=== PATIENT | male | born 1945 | race Caucasian/White ===

== ENCOUNTER → 2016-12-03 | Outpatient (CLI) | payer MEDICARE, OTHER ==
--- NOTE | 2016-12-03 15:13 | CT ---
EXAM DESCRIPTION: Abdomen and pelvis CT. CLINICAL HISTORY: Left lower quadrant abdominal tenderness. COMPARISON: None. TECHNIQUE: A volumetric CT with no FL IV contrast was obtained during the portal venous veins. Images are displayed in multiplanar reconstructions. FINDINGS: GI: Diverticulosis of the colon noted. No evidence of diverticulitis on today's study to account for patient's pain. Liver: No suspicious lesion. Biliary: Patient is status post cholecystectomy. Spleen: Unremarkable. Pancreas: Unremarkable. Adrenal Glands: No significant nodularity. Kidneys: No suspicious enhancement. Pelvic organs: Unremarkable. Bones: No suspicious lesion/fracture. Lymph nodes: No enlarged lymph nodes. Lung bases: No significant consolidation or nodularity. IMPRESSION: Today's CT demonstrates atherosclerotic disease of a non aneurysmal abdominal aorta, spondylosis of the lumbar spine and diverticulosis of the colon. No evidence of acute diverticulitis or other inflammatory changes within the abdomen or pelvis to account for patient's left lower quadrant pain. Electronically signed by: Fuad Nunes MD 12/03/2016 15:11
== END ==
LOC: RAD 12:11
PROVIDERS: ATTEND Family Medicine
DX: R10.814 Left lower quadrant abdominal tenderness (principal); K57.30 Diverticulosis of large intestine without perforation or abscess without bleeding; I70.0 Atherosclerosis of aorta; M47.896 Other spondylosis, lumbar region

== ENCOUNTER → 2017-02-27 | Outpatient (CLI) | payer MEDICARE, OTHER ==
--- NOTE | 2017-02-27 18:24 | MRI ---
EXAM DESCRIPTION: Brain w/oContrast CLINICAL HISTORY: 71 years,Male,[place] COMPARISON: None TECHNIQUE: MRI performed multiple sequences of the brain without contrast. FINDINGS: There is no abnormal extra-axial fluid collection. No mass effect. Ivan-white matter differentiation demonstrates mild increased T2 signal changes in the periventricular white matter. And multiple small T2 white matter changes seen in the santiago radiata bilaterally. Sulcation and ventricles demonstrates mild age-appropriate atrophy No mass effect. Diffusion demonstrates no acute findings. The included paranasal sinuses are unremarkable. The mastoid air cells are unremarkable. IMPRESSION: Unremarkable MRI of the brain. Electronically signed by: Angelo Madden MD 02/27/2017 6:23 PM CDT
== END ==
LOC: MRI 08:02
PROVIDERS: ATTEND Family Medicine
DX: R55 Syncope and collapse (principal)

== ENCOUNTER → 2017-03-12 | Day surgery (SDC) | payer MEDICARE, OTHER ==
[~2017-03-12] MED LIST: LIDOCAINE 1% 10 ML VIAL INJ ONE; PROPOFOL 200 MG/20 ML VIAL IV ONE; fentaNYL CITRATE INJ 50 MCG/ML AMP ONE
--- NOTE | 2017-03-12 09:46 | OP ---
DATE OF PROCEDURE: 03/12/17 PREPROCEDURE DIAGNOSIS: 1. History of colonic polyp. 2. Colon surveillance. POSTPROCEDURE DIAGNOSIS: 1. Diverticulosis of the sigmoid and descending colon. 2. No evidence of recurrent polyp. PROCEDURE: 1. Colonoscopy to the cecum. SURGEON: Skyler Suarez MD. ANESTHESIA: Monitored anesthesia care. FINDINGS: With the patient under adequate sedation, digital exam showed normal anal canal, normal sized prostate, no rectal masses and no clinically significant hemorrhoids identified. Colon preparation was excellent. Significant spasm in the sigmoid and descending colon with accompanying diverticulosis. There was no evidence of diverticulitis or diverticular stricture. The ascending colon was normal. The splenic flexure, transverse colon unremarkable. The ascending colon and cecum were reached. The ileocecal valve was visualized. Appendix opening was well seen. There were no lesions seen in the entire colon. The colon was examined to good advantage. Careful withdrawal of the scope and reexamination of the colon showed no new additional findings. Total scope withdrawal time was 6 minutes. FINAL IMPRESSION: 1. Diverticulosis of the sigmoid and descending colon with spasm. 2. No evidence of any colonic polyp. RECOMMENDATION: Followup colonoscopy in 5 to 10 years. #[id number] cc: Cholo Juarez MD MTDD
== END ==
LOC: AMB 07:04
PROVIDERS: ATTEND Internal Medicine Gastroenterology
DX: Z12.11 Encounter for screening for malignant neoplasm of colon (principal); K57.30 Diverticulosis of large intestine without perforation or abscess without bleeding; K21.9 Gastro-esophageal reflux disease without esophagitis; I25.10 Atherosclerotic heart disease of native coronary artery without angina pectoris; I10 Essential (primary) hypertension; Z86.010 Personal history of colon polyps; Z79.899 Other long term (current) drug therapy
CPT/HCPCS: 00810; G0105; J3010; J3490; J7120

== ENCOUNTER → 2018-08-13 | Outpatient (CLI) | payer MEDICARE, OTHER ==
--- NOTE | 2018-08-14 08:27 | MRI ---
EXAM DESCRIPTION: Lumbar Spine w/wo Contrast CLINICAL HISTORY: RADICULOPATHY COMPARISON: Previous MRI lumbar spine without and with contrast August 12, 2016 TECHNIQUE: MRI of the lumbar spine is performed according to our usual protocol with axial and sagittal multi sequence imaging. FINDINGS: Sagittal T2 images reveal decreased signal intensity consistent with desiccation of the intervertebral discs at levels L1-2 through L5-S1. Posterior annular bulges are most prominent at these levels as well. Slight degenerative anterolisthesis of L4 on L5 is present but this disc is fused. Slight degenerative retrolisthesis of L5 on S1 is present measuring 5 mm. No prevertebral mass or aneurysm. Lower cord and conus appear normal. Tip of the conus is behind L1. Metal artifacts are related to adrienne and screw fixation and L4-5 level with fused intervertebral disc. Compared to previous study August 12, 2016, no change is seen on sagittal T2 images. Sagittal T1 images reveal benign marrow signal characteristics. Normal T1 signal intensity and appearance of the lower cord and conus. Sagittal STIR images show mild increased signal intensity around the degenerated discs. No paraspinous fluid collection. Cystic lesions are seen associated with the posterior elements consistent with small ganglion cysts. Postcontrast images show no abnormal enhancement of the osseous structures. No rim enhancement around a recurrent disc herniation. Axial T1 and T2-weighted images were obtained to evaluate the disc levels. T12-L1: Mild diffuse posterior annular bulge without focal herniation. No spinal stenosis or significant neural foraminal narrowing. Facets appear mildly hypertrophic. Normal appearance of the lower cord and conus. L1-2: Moderate posterior annular bulge without focal herniation. No significant spinal stenosis. There is severe bilateral neural foraminal narrowing similar to appearance on previous study. Facets hypertrophy is present with ligamentum flavum thickening right more than left. There is severe narrowing of subarticular recesses left more than right. L2-3: Moderate diffuse posterior annular bulge with superimposed right midline and paracentral protrusion extending inferiorly behind upper endplate of L3 measuring 5 mm in AP dimension. This appears similar to previous study. No high-grade spinal stenosis. There is severe bilateral neural foraminal narrowing which appears similar to previous study. Marked facet hypertrophic spurring is present with ligamentum flavum thickening right more than left. Somewhat fragmented appearance of the superior articular process of L3 suggests an old fracture. Previous study had the same appearance. Severe narrowing of right subarticular recess and lateral recess affecting the descending right L3 nerve root. L3-4: Severe diffuse posterior annular bulge is seen with spinal stenosis. AP diameter of the spinal canal is narrowed to approximately 8 mm and the mediolateral width is narrowed by ligamentum flavum thickening to approximately 4 mm. Compared to previous study, this same appearance was present. There is obliteration of the bilateral subarticular recesses and bilateral lateral recess compromise. Severe left and moderately severe right neural foraminal narrowing is present as on previous study. L4-5: No spinal stenosis at this fused disc level. There is uncovering of the posterior annulus by grade 1 anterolisthesis. Sagittal images show severe right neural foraminal narrowing with moderately severe left neural foraminal narrowing. Marked facet hypertrophic changes are seen with narrowing of the left subarticular recess affecting the descending left L5 nerve root. Compared to the previous study, these findings appear stable. Posterior defect is consistent with right laminectomy and partial facetectomy. L5-S1: Mild posterior annular bulge without spinal stenosis. Marked facet hypertrophic spurring is seen with ligamentum flavum thickening. There is severe bilateral subarticular recess narrowing. Neural foraminal narrowing is severe bilaterally. No changes at this level compared to previous study. Axial postcontrast images confirm the findings. No change compared to the previous study. Upper sacrum appears intact. Pedicle screws and interconnecting rods are present on the right. No retroperitoneal mass or aneurysm. IMPRESSION: Disc degeneration and facet hypertrophy with multilevel subarticular recess and neural foraminal compromise. High-grade spinal stenosis at L3-4. Previous L4-5 fusion with adrienne and screw fixation. No significant change since previous exam. Electronically signed by: Jhony Booker MD 08/14/2018 8:26 AM CDT
== END ==
LOC: LAB.O 13:33
PROVIDERS: ATTEND Physical Medicine & Rehabilitation
DX: M54.16 Radiculopathy, lumbar region (principal); M51.36 Other intervertebral disc degeneration, lumbar region; M48.061 Spinal stenosis, lumbar region without neurogenic claudication; M96.1 Postlaminectomy syndrome, not elsewhere classified; Z98.1 Arthrodesis status

== ENCOUNTER → 2018-09-22 | Outpatient (CLI) | payer OTHER | LOC: GMAE 10:35 | PROVIDERS: ATTEND Family Medicine | DX: R06.02 Shortness of breath (principal); R00.1 Bradycardia, unspecified ==

== ENCOUNTER → 2018-10-12 | Outpatient (CLI) | payer OTHER | LOC: GMAE 11:57 | PROVIDERS: ATTEND Family Medicine | DX: E53.8 Deficiency of other specified B group vitamins (principal) ==

== ENCOUNTER 2019-03-23 02:22 | Emergency (ER) | payer OTHER, MEDICARE ==
[2019-03-23] MEDS ORDERED: NITROGLYCERIN 0.4 MG 25 EA TAB SL ONE (02:52)
[2019-03-23] MEDS ORDERED: GLUCAGON INJ 1 MG VIAL IM ONE (02:52)
[2019-03-23 02:53] VITALS: TEMP 98
--- NOTE | 2019-03-23 02:58 | ED.PDOC ---
History of Present Illness - General Chief Complaint: ENT Problem Stated Complaint: feels like a pill is stuck in his throat Time Seen by Provider: 03/23/19 02:37 - History of Present Illness Initial Comments: 73 Y/O MALE C/O HARD TO SWALLOW. PT IS TAKING TX FOR PUD (POSS H PYLORY). TOOK PILL AROUND 2200 AND FELT LIKE IT GOT STUCK IN THE ESOPHAGUS/THROAT. DRANK WATER AND EVENTUALLY FELT LIKE IT WENT DOWN. AROUND 0100 WOKE UP WITH DRY MOUTH AND IT WAS HARD TO SWALLOW, STS ARE CONSTANT, MILD TO MODERATE. NOT BETTER. DENIES FEVER, COUGH, SOB, CP, ABD PAIN, N/V. HAS HAD SOME OCCASIONAL DIARRHEA WITH THE ANTIBIOTICS. Allergies/Adverse Reactions: Allergies NO KNOWN ALLERGY Allergy (Verified 03/23/19 02:52) Home Medications: Ambulatory Orders Pantoprazole Sodium 40 mg PO BID 03/12/17 Apixaban [Eliquis] 5 mg PO DAILY 03/23/19 Lansoprazole [Prevacid] 30 mg PO BID 03/23/19 Losartan Potassium & Hydrochlo [Hyzaar 50-12.5 mg] 1 tab PO DAILY 03/23/19 Metoprolol Tartrate [Lopressor] 25 mg PO DAILY 03/23/19 Sucralfate Tab [Carafate Tab] 1 gm PO QID 03/23/19 Review of Systems - Review of Systems Constitutional: Denies: chills, diaphoresis, fever EENTM: States: no symptoms reported Respiratory: States: cough. Denies: orthopnea, short of breath, stridor Cardiology: Denies: chest pain, edema, palpitations Gastrointestinal/Abdominal: Denies: abdominal pain, constipation, diarrhea, nausea Genitourinary: States: no symptoms reported Musculoskeletal: States: no symptoms reported Skin: States: no symptoms reported Neurological: States: no symptoms reported Endocrine: States: no symptoms reported Past Medical History (General) - Patient Medical History Hx Seizures: No Hx Stroke: No Hx Dementia: No Hx Asthma: No Hx of COPD: No Hx Cardiac Disorders: No Hx Congestive Heart Failure: No Hx Pacemaker: No Hx Hypertension: Yes Hx Thyroid Disease: No Hx Diabetes: No Hx Gastroesophageal Reflux: Yes Hx Renal Disease: No Hx Cancer: No Hx of HIV: No Hx Hepatitis C: No Hx MRSA: No Surgical History: other - Vaccination History Hx Tetanus, Diphtheria Vaccination: No Hx Influenza Vaccination: Yes Hx Pneumococcal Vaccination: No - Social History Hx Tobacco Use: No Hx Alcohol Use: No Hx Substance Use: No Hx Physical Abuse: No Hx Emotional Abuse: No Family Medical History - Family History Father Family History: Unknown Living Status: Brother Family History: Unknown Living Status: Age at (years of age): 93 Cause of : PR Sister Family History: Unknown Living Status: Cause of : PR Physical Exam - Physical Exam General Appearance: Alert, Anxious, Comfortable Eye Exam: bilateral normal - SERGIO, EOMI Ears, Nose, Throat: hearing grossly normal, normal ENT inspection, normal pharynx Neck: non-tender, full range of motion, supple, normal inspection Respiratory: chest non-tender, lungs clear, normal breath sounds, no respiratory distress, no accessory muscle use Cardiovascular/Chest: normal peripheral pulses, regular rate, rhythm, no edema, no gallop Gastrointestinal/Abdominal: normal bowel sounds, non tender, soft, no organomegaly, no pulsatile mass Back Exam: normal inspection, no CVA tenderness Extremity: normal range of motion, non-tender 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 NO RESPIRATORY DISTRESS, O2 SAT IN THE HIGH 90'S ON RA. GI SLIDER GIVEN, NO IMPROVEMENT. STILL FEELS LIKE SOMETHING IS STUCK IN HIS THROAT. PT HAS BEEN OBSERVED FOR ABOUT 2 HRS AND HAS HAD NO RESPIRATORY DISTRESS OR PROBLEMS. RECOMMENDED TRANSFER TO [facility] FOR ENT CONSULT, PT DECLINES, FEELS STABLE, WANTS TO GO HOME AND WILL CALL PCP OR ENT IN AM. DR MCKEON IS [facility] [employer] AND HIS PHONE NUMBER WAS GIVEN TO THE PATIENT. ADVISED TO CALL EARLY IN THE MORNING. AGAIN OFFERED TO TRANSFER HIM RIGHT NOW, BUT HE DECLINES. RT ER IF ANY PROBLEMS OR IF UNABLE TO F/U WITH ENT AND STS PERSIST. - EKG/XRAY/CT Xray Comments: XR: NAF Departure - Departure Clinical Impression: Dysphagia Qualifiers: Dysphagia type: unspecified Qualified Code(s): R13.10 - Dysphagia, unspecified ICD-10 Supporting Text: POSSIBLE FOREIGN BODY Disposition: Discharge to Home or Self Care Condition: Good Departure Forms: ED Discharge - Pt. Copy, Patient Portal Self Enrollment Instructions: DI for Ear Pain-Adult Diet: full liquid diet Referrals: ALEXX VARMA MD [Primary Care Provider] - 1-2 Weeks Home Medications: Ambulatory Orders Pantoprazole Sodium 40 mg PO BID 03/12/17 Apixaban [Eliquis] 5 mg PO DAILY 03/23/19 Lansoprazole [Prevacid] 30 mg PO BID 03/23/19 Losartan Potassium & Hydrochlo [Hyzaar 50-12.5 mg] 1 tab PO DAILY 03/23/19 Metoprolol Tartrate [Lopressor] 25 mg PO DAILY 03/23/19 Sucralfate Tab [Carafate Tab] 1 gm PO QID 03/23/19
--- NOTE | 2019-03-23 03:15 | RAD ---
EXAM: XR Soft Tissue Neck CLINICAL HISTORY: The patient is 73 years old and is Male; FEELS SOMETHING IS IN THE THROAT TECHNIQUE: Frontal and lateral views of the soft tissues of the neck. COMPARISON: No relevant prior studies available. FINDINGS: AIRWAY: Unremarkable. No abnormal narrowing. BONES/JOINTS: Postsurgical change from C5 through C7 with anterior cervical disc fusion is noted. SOFT TISSUES: Unremarkable. No abnormal soft tissue prominence. Normal epiglottis. IMPRESSION: No acute findings. Electronically signed by: Fátima Henao MD 03/23/2019 3:13 AM CDT
[2019-03-23] MEDS ORDERED: ALUM & MAG HYDROX-SIMETHICONE 30 ML, LIDOCAINE VISCOUS 2% 15 ML PO ONE ×2 (03:54)
[2019-03-23] MEDS ORDERED: LIDOCAINE HCL 2% (MOUTH-THROAT) 15 ML UD ONE (03:55)
[2019-03-23] MEDS ORDERED: ALUM & MAG HYDROX-SIMETHICONE 30 ML UD ONE (03:55)
[2019-03-23 04:41] VITALS: BP 103/72; O2SAT 98
== END 2019-03-23 04:41 | disposition home or self-care (01) ==
LOC: ER 02:22
DX: R13.10 Dysphagia, unspecified (principal); I10 Essential (primary) hypertension; K21.9 Gastro-esophageal reflux disease without esophagitis; Z79.899 Other long term (current) drug therapy; Z79.01 Long term (current) use of anticoagulants
CPT/HCPCS: 70360; J1610

== ENCOUNTER → 2019-09-20 | Outpatient (CLI) | payer OTHER ==
--- NOTE | 2019-09-20 15:41 | MRI ---
EXAM DESCRIPTION: Lumbar Spine w/o Contrast : Magnetic Resonance Imaging. CLINICAL HISTORY: RADICULOPATHY LUMBAR REGION COMPARISON: MRI lumbar spine without contrast 13 August 2018. TECHNIQUE: Multiplanar, multiple standard sequences, non contrast MRI, lumbar spine. FINDINGS: L5-S1: The disc is well visualized on axial T2 series 501, image 3. There flattening of the disc space. Anterior endplate reaction and disc remnant bulge. 4.5 mm grade 1 retrolisthesis is stable. Tiny posterior disc remnant bulge with endplate spurs. Hypertrophic facet arthrosis bilaterally with more ligament thickening on the left. Bilateral mild foraminal stenosis and bilateral L5 nerve compromise stable since the prior study. L4-L5 posterior fusion construct with right side only transpedicular screws, unilateral connecting adrienne, and interbody fusion device. The device is located on the right side of the disc space abutting the right endplate margins. 2.5 mm anterolisthesis is stable. Stable endplate changes related to the interbody fusion. Mild disc space loss to the left of midline. Disc osteophyte complex encroaching on the left foramen with moderate foraminal narrowing. Disc osteophyte complex and bony hypertrophy causing right foraminal stenosis slight progression since the prior study. Effacement of the right subarticular recess by granulation tissue. AP canal diameter 11 mm. L3-L4: Disc desiccation with minimal disc space loss anterior bulging. Posterior broad-based bulge 5 mm and migration above and below the disc space with bilateral subarticular recess stenosis. Marked bilateral facet joint arthrosis with joint space effusions and posterior ligament thickening. AP canal narrowed to a 3 mm channel, 5 mm craniocaudal. Narrowing has increased since the prior study. Moderate to severe left foraminal narrowing. Borderline right foraminal stenosis. Foraminal narrowing/stenosis stable. L2-L3: Moderately disc desiccation moderate to severe disc space loss anterior bulging and diffuse moderate endplate reaction midline into the left of midline. Diffuse disc bulge in the midline with AP canal diameter 11 mm. Disc bulge left of midline with disc osteophyte complex causing severe left foraminal stenosis stable since the prior study. Partial decompression and left laminectomy L2. Right side hypertrophic facet arthrosis and thickened ligament, contributing to moderate to severe right foraminal narrowing, L1-L2: Disc desiccation and minimal to moderate disc space loss. Anterior bulging and endplate reaction. Posterior disc bulge and moderate endplate reaction in the midline and to the left of midline with 3 mm grade 1 retrolisthesis. Anterior disc bulge effacing the bilateral subarticular recesses. Bilateral moderate hypertrophic facet arthrosis and ligament thickening with AP canal diameter 7.5 mm. Moderate foraminal narrowing bilaterally. No change since the prior study. T12-L1: Disc desiccation with minimal disc space loss and bulging. Mild bilateral hypertrophic facet arthrosis and ligament thickening impressing on the lateral junction of the thecal sac and conus. Mild bilateral foraminal narrowing with no canal stenosis. Conus terminates at this level. T12-L2 dextroscoliosis and L3-S1 levoscoliosis. Paravertebral soft tissues bilateral paravertebral muscle atrophy. There may be bilateral mild renal cortical atrophy.. Distal cord normal signal and caliber. Normal marrow signal in the remaining vertebral bodies and the posterior elements. Vertebral bodies are not compressed at any level. IMPRESSION: 1. Degenerative scoliosis with multiple levels of endplate spondylosis, disc desiccation and bulging, hypertrophic facet arthrosis and flavum ligament hypertrophy. 2. Posterior transpedicular fusion at L4 and L5 on the right with unilateral connecting rods. Customary position. No abnormal marrow signal, soft tissue edema, or fluid collection paravertebral or in the canal. Interbody fusion device on the right side of the disc space. 2.5 mm anterolisthesis and moderate canal narrowing. Stable since the prior study. Right foraminal stenosis has slightly progressed since the prior study. 3. Multifactorial bilateral mild foraminal stenosis at L5-S1 and bilateral L5 nerve root compromise stable since the prior study. 4. Multifactorial severe canal stenotic channel, 5 mm in length and L3-L4. Degree of stenosis is increased since the prior study. Borderline right foraminal stenosis and left foraminal narrowing is stable. 5. Left side disc osteophyte complex and hypertrophic bone resulting in severe foraminal stenosis at L2-3 stable since the prior study. Moderate to severe right side foraminal narrowing due to hypertrophic changes of the posterior elements. 6. Moderate canal stenosis at L1-L2 with effacement of the bilateral subarticular recesses and grade 1 anterolisthesis, stable since the prior study. Electronically signed by: Manjeet Covington MD 09/20/2019 3:40 PM [facility]
== END ==
LOC: MRI 10:46
PROVIDERS: ATTEND Family Medicine
DX: M41.9 Scoliosis, unspecified (principal); M47.25 Other spondylosis with radiculopathy, thoracolumbar region; M47.26 Other spondylosis with radiculopathy, lumbar region; M51.15 Intervertebral disc disorders with radiculopathy, thoracolumbar region; M51.16 Intervertebral disc disorders with radiculopathy, lumbar region; M43.16 Spondylolisthesis, lumbar region; M48.07 Spinal stenosis, lumbosacral region; M48.062 Spinal stenosis, lumbar region with neurogenic claudication; M25.78 Osteophyte, vertebrae; Z98.1 Arthrodesis status

== ENCOUNTER → 2019-09-21 | Outpatient (CLI) | payer OTHER ==
--- NOTE | 2019-09-21 16:12 | CT ---
EXAM DESCRIPTION: Lumbar Spine: Computed Tomography. CLINICAL HISTORY: 73 years Male RADICULOPATHY COMPARISON: Prior scan lumbar spine 20 September 2019 and 13 August 2018. TECHNIQUE: Spiral, axial 2.5 x 2.5 mm scans through the lumbarspine without contrast. Coronal and sagittal Reconstructions. Total Exam DLP: 419.76 mGy-cm. This exam was performed according to our departmental dose-optimization program which includes automated exposure control, adjustment of the mA and/or kV according to patient size and/or use of iterative reconstruction technique; to reduce radiation dose to as low as reasonably achievable (ALARA). FINDINGS: Posterior fusion construct on the right at L5 and L4 with normal bone density around the screws and the posterior unilateral connecting adrienne. No large soft tissue mass around the hardware. No radiodense metallic or bony fragments around the hardware. L5-S1: Marked loss of the disc space. Anterior disc remnant bulge with endplate spurs. Bilateral endplate reactive changes left more than right and also posterior. Bilateral facet arthrosis with deformity of the pars more right than left, no spondylolysis. Moderate canal narrowing. Bilateral hypertrophic facet arthrosis. Bilateral foraminal stenosis, left more than right. No bony compression deformity. L4-L5: Fusion as previously described. Interbody fusion device predominantly in the midline and right of midline. Endplate reactive changes also predominantly anterior and to the right of midline with minimal inferior subsidence of the implant. Right facet joint is mostly fused also partially fused on the left. Right foraminal stenosis and marked left foraminal narrowing. Grade 1 anterolisthesis. Moderate canal narrowing. No bony compression deformity. Bony narrowing or stenosis left subarticular recess L3-L4: disc bulge anteriorly with spurs. Posterior disc space decreased. Bilateral facet arthrosis and hypertrophy right more than left. Posterior disc bulge and hypertrophic soft tissue changes and posterior ligament thickening not well appreciated on the CT scan. Severe canal stenosis noted on the MRI scan. Bony foraminal narrowing right more than left. No bony compression deformity. L2-L3: Disc desiccation and disc space loss and desiccated disc gas formation in the disc space. Posterior disc space endplate reactive changes more to the posterior and right aspect. Bilateral hypertrophic facet arthrosis, with widening of the SI joint and gas formation in the right facet. Bilateral foraminal stenosis with canal narrowing. No compression type vertebral body with deformity. No prior partial left laminectomy at L2, as was suspected on the MRI scan. L1-L2: Disc desiccation and disc space loss with minimal desiccated gas in the disc space posterior and anterior endplate reactive changes with anterior disc bulging. Minimal posterior soft tissue bulge. Significant bony canal narrowing. Narrowing of the left subarticular recess. Bilateral bony foraminal narrowing and possible stenosis from nonvisualized soft tissues T12-L1: Disc space decreased with desiccated air formation in the disc. Posterior remnant bulging. Question of a synovial cyst or other soft tissue object, measuring 4.7 mm, projecting anteriorly from the left facet joint against the posterolateral left thecal sac on axial image 12/26. Bilateral significant foraminal narrowing. IMPRESSION: 1. Multilevel spondylosis, disc degeneration, hypertrophic endplate changes and hypertrophic facet arthrosis, resulting in multiple levels of canal narrowing or stenosis and foraminal narrowing or stenosis. Bony canal and foraminal stenosis visualized at several levels on this study. MRI study more sensitive for stenosis of canal and foramina caused by soft tissues. MRI also more sensitive for soft tissue subarticular recess narrowing or stenosis. 2. Finding of a soft tissue object possibly synovial cyst projecting from the left facet joint at T12-L1 into the posterior lateral left thecal sac and possibly abutting the descending left L1 nerve. Not well seen on the MRI scan. Electronically signed by: Manjeet Covington MD 09/21/2019 4:10 PM [facility]
== END ==
LOC: CT 09:53
PROVIDERS: ATTEND Family Medicine
DX: M47.26 Other spondylosis with radiculopathy, lumbar region (principal); M51.16 Intervertebral disc disorders with radiculopathy, lumbar region; M79.9 Soft tissue disorder, unspecified

== ENCOUNTER → 2019-12-30 | Outpatient (CLI) | payer OTHER | LOC: GMAE 10:54 | PROVIDERS: ATTEND Family Medicine | DX: Z12.5 Encounter for screening for malignant neoplasm of prostate (principal); I10 Essential (primary) hypertension | CPT/HCPCS: 84443; G0103 ==

== ENCOUNTER → 2020-03-21 | Outpatient (CLI) | payer OTHER ==
--- NOTE | 2020-03-22 11:18 | MRI ---
EXAM DESCRIPTION: Brain w/o Contrast: MRI. CLINICAL HISTORY: DIPLOPIA COMPARISON: MRI brain without contrast February 2017. TECHNIQUE: Multiplanar, high-field MRI unit, multiple diffusion sequences, multiple conventional sequences without contrast. FINDINGS: Bilateral multiple foci of hyperintense FLAIR and T2-weighted signal in the periventricular white matter and blackburn/sub-cortical white matter junctions of the cerebral hemispheres. . Only minimal involvement of the temporal lobes. No hemorrhage, no cerebral edema, no midline shift.. Similar appearing lesions in the bilateral basal ganglia. No hemorrhage, no cerebral edema, no mass-effect normal signal in the brainstem and cerebellar hemispheres.. Concordance of the diffusion and non-diffusion sequences with no diffusion restriction. Cortical sulci, ventricles, and other CSF spaces, and the subdural spaces are slightly more prominent since the prior study, especially the ventricles. No effacement or displacement. No midline shift. No extra-axial hemorrhage. Normal flow signal void in the major vessels of the [place] Andrea, and the venous sinuses. IACs are symmetric bilaterally. Minimal edema like signal in the bilateral mastoid air cells. No mass effect in the bilateral cerebellopontine angles. 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 Base of the cerebellar tonsils is above the foramen magnum. No significant disease in the paranasal sinuses. The bony calvarium is intact. IMPRESSION: 1. Abnormal findings in the periventricular white matter, centrum semiovale, and subcortical white matter relatively stable since the prior study with relative sparing of the bilateral temporal lobes. No intra-axial hemorrhage, mass effect, or midline shift. 2. Extra-axial spaces are more prominent since the prior study, with bilateral ventricles enlarging. No extra-axial hemorrhage or fluid. 3. Chronic mastoiditis bilaterally stable since the prior study. Electronically signed by: Manjeet Covington MD 03/22/2020 11:17 AM CDT
== END ==
LOC: MRI 09:56
PROVIDERS: ATTEND Family Medicine
DX: H53.2 Diplopia (principal); R90.82 White matter disease, unspecified; G93.89 Other specified disorders of brain; H70.93 Unspecified mastoiditis, bilateral

== ENCOUNTER → 2020-09-11 | Outpatient (CLI) | payer OTHER | LOC: GMAE 16:55 | PROVIDERS: ATTEND Family Medicine | DX: R41.9 Unspecified symptoms and signs involving cognitive functions and awareness (principal) ==

== ENCOUNTER → 2020-10-05 | Outpatient (CLI) | payer OTHER | LOC: GMAE 17:10 | PROVIDERS: ATTEND Family Medicine | DX: R30.0 Dysuria (principal) ==